=== PATIENT | male | born 1965 | race Caucasian/White ===

== ENCOUNTER 2024-09-06 15:59 | Emergency (ER) | payer BC, SELFPAY ==
[2024-09-06 16:13] VITALS: BP 189/106
--- NOTE | 2024-09-06 16:24 | ED.GENMED ---
ED Provider Triage
<Ami Preston PA-C - Last Filed: 09/06/24 16:27>
-
Patient seen by provider in Triage?: Seen in Triage
Attestation: A medical screening examination has been initiated by a qualified medical provider. Based on the assessment performed at this time, it has been determined that an emergent medical condition may exist and the patient has been informed
that further medical evaluation and possible additional diagnostic testing may be needed.
HPI: 58yoM here with mild chest discomfort, feels like a cramp. Seems to come on randomly. S/p CABG 4 years ago[address] with Dr[address] Montoya.
GENERAL: Alert , in no apparent distress
EYE: No visual abnormalities.
NECK: Trachea midline
ENT: No visible abnormalities.
LUNGS: No acute respiratory distress
NEUROLOGICAL: Alert and oriented
SKIN: Skin intact. No visible changes.
MUSCULOSKELETAL: Moving extremities normally
PSYCH: Normal and appropriate interaction.
This is a medical evaluation conducted in person to initiate diagnostic evaluation and provide initial therapeutics. Please see further documentation by the treating clinician.
Cardiac labs, EKG, and CXR ordered.
History of Present Illness
<Ami Preston PA-C - Last Filed: 09/06/24 16:27>
General
Chief Complaint: Cardiac Symptoms
Time Seen by Provider: 09/06/24 20:08
<ROSSY Cartwright - Last Filed: 09/06/24 22:23>
General
Source: patient
Exam Limitations: none
Nursing documentation reviewed up to this point in time: agreed with
History of Present Illness
History of Present Illness:
Patient is a 58-year-old male past medical history of cardiac bypass x3 ( 2019) diabetes presents to the ER for evaluation.
Patient reports intermittently for the past 10 days he has had intermittent neck discomfort and left lateral chest discomfort. He reports this is very brief and very sporadic and intermittent. He did however have neck discomfort when he previously
required bypass in 2020 but reports this is different.
He denies any shortness of breath.
He does take his medications including aspirin lisinopril atorvastatin metoprolol and diltiazem. In addition he is a diabetic and takes Lantus and NovoLog but has been not frequently checking his sugars.
Out of precaution patient presented to the ER.
Past History
<Ami Preston PA-C - Last Filed: 09/06/24 16:27>
Past History
ED Past Medical History: HTN and Other (Left inguinal hernia repair)
ED Past Surgical History: Other (Hernia repair as a child)
Social History
Tobacco: Non-smoker
Alcohol: None
Personal:
Living: with family
Employment: Employed
Family History
Family History: Other (He states his mother of anorexia)
Review of Systems
<ROSSY Cartwright - Last Filed: 09/06/24 22:23>
Review of Systems
Allergies reviewed?: Yes
All Other Systems: ROS reviewed and negative except as documented in HPI and ROS
Constitutional: Reports no symptoms; Denies fever, fatigue or chills
Respiratory: Denies trouble breathing
Cardiac: Reports chest pain; Denies diaphoresis, palpitations or syncope
ABD/GI: Reports no symptoms
: Reports no symptoms
Musculoskeletal: Reports no symptoms
Skin: Reports no symptoms
Neurological: Reports no symptoms
Hematologic/Lymphatic: Reports no symptoms
Psychiatric: Reports no symptoms
Phy Exam
<ROSSY Cartwright - Last Filed: 09/06/24 22:23>
General Physical Exam
General Presentation: no apparent distress
General age: appears stated age
General Skin: warm and dry
General Habitus: normal
General Mental: alert
General Hydration: appears well hydrated
Cardiovascular Exam
Cardiovascular Exam: regular rate/rhythm, no murmur and normal peripheral pulses
Pulmonary Exam
Pulmonary Exam: lungs clear and no respiratory distress
Neurological Exam
Neurological Exam: alert and oriented x3
Musculoskeletal Exam
Musculoskeletal Exam: full ROM
Skin Exam
Skin Exam: normal color and warm/dry
Psychiatric Exam
Psychiatric Exam: normal mood/affect
Course
<Ami Preston PA-C - Last Filed: 09/06/24 16:27>
Orders/Labs/Results
Orders:
Orders
09/06/24 16:01
ECG [Electrocardiogram (*1)] Urgent
Reason for Study: Chest Pain
EKG- Treatment ONCE
09/06/24 16:17
CR Chest - 2 Views Urgent
Comment:
Reason For Exam: chest pain
09/06/24 16:29
Complete Blood Count/With Diff Urgent
Comprehensive Metabolic Panel Urgent
Troponin I Urgent
09/06/24 20:10
EKG- Treatment ONCE
09/06/24 20:30
Electrocardiogram (*1) Urgent
Reason for Study: Other
Other Reason for Exam: repeat trop
09/06/24 20:41
Troponin I Urgent
09/06/24 20:42
0.9% Sodium Chloride 1000 ml [Nss] 1,000 ml IV BOLUS
Abnormal Lab Results
09/06/24 09/06/24
16:29 21:43
WBC 11.5 H 10^3/uL
(4.8-10.8)
MCH 32.9 H pg
(27.0-31.0)
MPV 12.0 H fL
(7.4-10.4)
Abs Immat Gran (auto) 0.1 H 10^3/uL
(0-0.05)
Absolute Neuts (auto) 8.5 H 10^3/uL
(1.4-6.5)
Absolute Monos (auto) 0.9 H 10^3/uL
(0.1-0.6)
Immature Gran % 0.7 H %
(0-0.5)
Lymphocytes % 15.5 L %
(20.5-51.1)
Carbon Dioxide 20 L mmol/L
(22-30)
BUN 25 H mg/dl
(9-20)
Glucose 434 H mg/dl
(70-99)
Total Bilirubin 2.6 H mg/dl
(0.2-1.3)
ALT 53 H U/L
(0-50)
POC Glucose 231 H mg/dl
(70-99)
09/06/24 16:29
09/06/24 16:29
Vital Signs
Initial and Last Documented VS:
Initial Vital Signs
Temp Pulse Resp BP Pulse Ox
98.5 F 84 18 189/106 96
09/06/24 16:13 09/06/24 16:13 09/06/24 16:13 09/06/24 16:13 09/06/24 16:13
Last Documented Vital Signs
Temp Pulse Resp BP Pulse Ox
98.5 F 72 16 186/91 98
09/06/24 16:13 09/06/24 21:45 09/06/24 21:45 09/06/24 21:40 09/06/24 21:45
<ROSSY Cartwright - Last Filed: 09/06/24 22:23>
Orders/Labs/Results
Orders:
Orders
09/06/24 16:01
ECG [Electrocardiogram (*1)] Urgent
Reason for Study: Chest Pain
EKG- Treatment ONCE
09/06/24 16:17
CR Chest - 2 Views Urgent
Comment:
Reason For Exam: chest pain
09/06/24 16:29
Complete Blood Count/With Diff Urgent
Comprehensive Metabolic Panel Urgent
Troponin I Urgent
09/06/24 20:10
EKG- Treatment ONCE
09/06/24 20:30
Electrocardiogram (*1) Urgent
Reason for Study: Other
Other Reason for Exam: repeat trop
09/06/24 20:41
Troponin I Urgent
09/06/24 20:42
0.9% Sodium Chloride 1000 ml [Nss] 1,000 ml IV BOLUS
Abnormal Lab Results
09/06/24 09/06/24
16:29 21:43
WBC 11.5 H 10^3/uL
(4.8-10.8)
MCH 32.9 H pg
(27.0-31.0)
MPV 12.0 H fL
(7.4-10.4)
Abs Immat Gran (auto) 0.1 H 10^3/uL
(0-0.05)
Absolute Neuts (auto) 8.5 H 10^3/uL
(1.4-6.5)
Absolute Monos (auto) 0.9 H 10^3/uL
(0.1-0.6)
Immature Gran % 0.7 H %
(0-0.5)
Lymphocytes % 15.5 L %
(20.5-51.1)
Carbon Dioxide 20 L mmol/L
(22-30)
BUN 25 H mg/dl
(9-20)
Glucose 434 H mg/dl
(70-99)
Total Bilirubin 2.6 H mg/dl
(0.2-1.3)
ALT 53 H U/L
(0-50)
POC Glucose 231 H mg/dl
(70-99)
09/06/24 16:29
09/06/24 16:29
Vital Signs
Initial and Last Documented VS:
Initial Vital Signs
Temp Pulse Resp BP Pulse Ox
98.5 F 84 18 189/106 96
09/06/24 16:13 09/06/24 16:13 09/06/24 16:13 09/06/24 16:13 09/06/24 16:13
Last Documented Vital Signs
Temp Pulse Resp BP Pulse Ox
98.5 F 72 16 186/91 98
09/06/24 16:13 09/06/24 21:45 09/06/24 21:45 09/06/24 21:40 09/06/24 21:45
Photolettering Machine Operator consulted with Physician
Photolettering Machine Operator consulted with physician?: Yes
Name of Physician Consulted: DR Cisneros
<ROSSY Cartwright - Last Filed: 09/06/24 22:23>
MDM/Problems Addressed
Differential Diagnosis Includes:
Not limited to ACS hyperglycemia musculoskeletal chest pain
MDM/Problems Addressed:
Patient is a 58-year-old male who presents to the ER for intermittent episodes of left-sided chest discomfort and neck discomfort for the past 10 days. He has has had prior bypass 4 years ago and does report however that although he had neck pain
at that time this is a different type of pain.
Pt presents to the ER asymptomatic initial troponin was 0.031 and 4-hour repeat troponin 0.033.
Pt is a diabetic and ill he states he takes his insulin as he does not check his sugar and has been noncompliant recently.
Pt with elevated bs was given nss and bs now 231 .
Patient has remained chest pain-free here in the ER. He does admit to not having seen his motor vehicle clerk, Dr. Montoya in a while.
Pain has been intermittent for the past 10 days and no change in cardiac troponin. Patient has been asymptomatic here in the ER
As discussed with ED physician will DC with chest pain
I did have long conversation with patient about closely following monitoring his blood sugar taking all his medicines as discussed and importance of follow-up with cardiology
Chronic conditions affecting care:
CABG
<ROSSY Cartwright - Last Filed: 09/06/24 22:23>
*Critical Care Note
Total Time (30-74mins, 75-104mins- exclusive of procedures): Not Applicable
ED Attending Note
<Ami Preston PA-C - Last Filed: 09/06/24 16:27>
-
Portions of this chart may have been created with voice recognition software.� Occasional wrong word or��sound alike� substitutions may have occurred due to the inherent limitations of voice recognition software.
Discharge Plan
Departure
Patient Disposition: Home (Routine Discharge)
Date of Disposition: 09/06/24
Time of Disposition: 22:13
Patient with high blood pressure during this ER visit?: Yes
Condition: Fair
Covid-19: Not Applicable
Discharge Problem:
Chest pain, Acute hyperglycemia
Instructions: Chest Pain (DC), Chest Pain CBC Follow Up, BLOOD PRESSURE
Prescriptions:
No Action
(DME) blood sugar diagnostic [Blood Glucose Test] 1 EACH strip
1 ea MC ACHS Qty: 200 0RF
Rx Instructions:
E11.65
OneTouch VERIO test strips
insulin aspart U-100 [Novolog FlexPen U-100 Insulin] 300 UNITS/3 ML insulin pen
4 units SC TID Qty: 5 0RF
Rx Instructions:
Take 10 min before breakfast, lunch, dinner
insulin glargine [Lantus Solostar U-100 Insulin] 300 UNITS/3 ML insulin pen
14 units SC HS Qty: 5 0RF
Rx Instructions:
E11.65
(DME) pen needle, diabetic 1 EACH needle
1 ea MC ACHS Qty: 200 0RF
Rx Instructions:
BD CLAUDIA pen needles
E11.65
(DME) lancets 1 EACH misc
1 ea MC ACHS Qty: 200 0RF
Rx Instructions:
DELICA lancets
E11.65
atorvastatin 80 MG tablet
80 mg PO QPM Qty: 30 2RF
acetaminophen 325 MG tablet
650 mg PO Q4HPRN PRN (Reason: mild pain,headache,temp >101F ) 0RF
amiodarone [Pacerone] 200 MG tablet
200 mg PO BID Qty: 56 0RF
Rx Instructions:
Take 200mg twice daily for 2 weeks, then decrease to 200mg once daily until seen by your motor vehicle clerk
metoprolol succinate 50 MG tablet extended release 24 hr
50 mg PO DAILY Qty: 30 2RF
aspirin 81 MG tablet,chewable
81 mg PO DAILY 0RF
diltiazem HCl 120 MG capsule,extended release 24hr
120 mg PO DAILY Qty: 30 2RF
furosemide [Lasix] 40 MG tablet
40 mg PO DAILY Qty: 5 0RF
potassium chloride [Klor-Con M20] 20 MEQ tablet,ER particles/crystals
20 meq PO DAILY Qty: 5 0RF
oxycodone 5 MG tablet
5 mg PO Q6HPRN PRN (Reason: pain) Qty: 26 0RF
Referrals:
Jai Montoya MD [Active] -
Activity Restrictions/Additional Instructions:
As discussed you were placed on the chest pain hotline which means you should receive a phone call from the cardiology office in the next day or 2 however if you do not please call the office to schedule an appointment soon as possible. Also please
closely monitor your blood sugar as your blood sugar was high today here in the ER take your insulin as previously recommended. Return however to the ER if any worsening of symptoms including chest pain shortness of breath or any further concerns.
Interventions
Interventions:
*Risk Screen - Suicide Last Done: 09/06/24 16:13
*General Assessment Last Done: 09/06/24 16:13
*Neglect/Abuse Screening Last Done: 09/06/24 16:13
*ED COVID-19 Vaccine History Last Done: 09/06/24 16:13
ED- Pulmonary Assessment Last Done: 09/06/24 21:28
ED- Cardiac Assessment Last Done: 09/06/24 21:28
Discharge Date and Time
Print Language: GUATEMALAN
[2024-09-06 16:52] LABS: ALT (SGPT) 53 U/L (0-50); AST (SGOT) 39 U/L (17-59); Albumin 4.6 g/dl (3.5-5.0); Alkaline Phosphatase 116 U/L (38-126); Blood Urea Nitrogen 25 mg/dl (9-20); Calcium 9.5 mg/dl (8.4-10.2); Carbon Dioxide 20 mmol/L (22-30); Chloride 103 mmol/L (98-107); Glucose 434 mg/dl (70-99); Potassium 4.5 mmol/L (3.5-5.1); Sodium 138 mmol/L (135-145); Total Bilirubin 2.6 mg/dl (0.2-1.3); Total Protein 7.4 g/dl (6.3-8.2); eGFR > 60.00
[2024-09-06 17:03] LABS: Troponin I 0.031 ng/ml
[2024-09-06 17:58] LABS: % Basophils 0.5 % (0-2); % Eosinophils 2.1 % (0-6); % Immature Granulocytes 0.7 % (0-0.5); % Lymphocytes 15.5 % (20.5-51.1); % Monocytes 7.6 % (1.7-9.3); % Neutrophils 73.6 % (42.2-75.2); Absolute Basophils 0.1 10^3/uL (0-0.2); Absolute Eosinophils 0.2 10^3/uL (0-0.7); Absolute Immature Granulocytes 0.1 10^3/uL (0-0.05); Absolute Lymphocytes 1.8 10^3/uL (1.2-3.4); Absolute Monocytes 0.9 10^3/uL (0.1-0.6); Absolute Neutrophils 8.5 10^3/uL (1.4-6.5); Hematocrit 48.7 % (39.0-52.0); Mean Corpuscular Hgb 32.9 pg (27.0-31.0); Nucleated Red Blood Cells % 0 % (-); Platelet Count 203 10^3/uL (130-400); Red Blood Cell Count 5.47 10^6/uL (4.70-6.10); Red Cell Dist. Width 12.3 % (11.5-14.5); White Blood Cell Count 11.5 10^3/uL (4.8-10.8)
[2024-09-06 18:30] VITALS: BP 134/99
[2024-09-06 20:41] VITALS: BP 185/112
[2024-09-06] MEDS: NSS 1000 IV (20:43)
[2024-09-06 21:29] LABS: Troponin I 0.033 ng/ml
[2024-09-06 21:40] VITALS: BP 186/91
[2024-09-06 21:44] LABS: Glucose - Point of Care 231 mg/dl (70-99)
[2024-09-06 22:00] VITALS: BP 163/96
== END 2024-09-06 23:03 | disposition home or self-care (01) ==
LOC: EMR 15:59
PROVIDERS: Emergency Medicine; EMERGENCY PHYSICIAN Emergency Medicine; FAMILY PHYSICIAN Family Medicine
DX: R07.89 Other chest pain (principal); M54.2 Cervicalgia; E11.65 Type 2 diabetes mellitus with hyperglycemia; Z95.1 Presence of aortocoronary bypass graft; Z91.148 Patient's other noncompliance with medication regimen for other reason; Z79.82 Long term (current) use of aspirin; Z79.899 Other long term (current) drug therapy
CPT/HCPCS: 99284; 96360; 71046; 80053; 82962; 84484; 85025; 93005

== ENCOUNTER → 2024-09-14 06:35 | Outpatient (REF) | payer BC, SELFPAY ==
[2024-09-14 08:19] LABS: % Basophils 0.7 % (0-2); % Eosinophils 3.7 % (0-6); % Immature Granulocytes 0.6 % (0-0.5); % Lymphocytes 20.7 % (20.5-51.1); % Monocytes 9.1 % (1.7-9.3); % Neutrophils 65.2 % (42.2-75.2); Absolute Basophils 0.1 10^3/uL (0-0.2); Absolute Eosinophils 0.3 10^3/uL (0-0.7); Absolute Immature Granulocytes 0.1 10^3/uL (0-0.05); Absolute Lymphocytes 1.9 10^3/uL (1.2-3.4); Absolute Monocytes 0.8 10^3/uL (0.1-0.6); Absolute Neutrophils 5.9 10^3/uL (1.4-6.5); Hematocrit 46.9 % (39.0-52.0); Hemoglobin 17.6 g/dL (13.0-18.0); Mean Corp Hgb Conc. 37.5 g/dL (33.0-37.0); Mean Corpuscular Hgb 32.7 pg (27.0-31.0); Nucleated Red Blood Cells % 0 % (-); Platelet Count 222 10^3/uL (130-400); Red Blood Cell Count 5.39 10^6/uL (4.70-6.10); Red Cell Dist. Width 12.3 % (11.5-14.5)
[2024-09-14 08:54] LABS: ALT (SGPT) 64 U/L (0-50); AST (SGOT) 40 U/L (17-59); Albumin 4.7 g/dl (3.5-5.0); Alkaline Phosphatase 65 U/L (38-126); Blood Urea Nitrogen 28 mg/dl (9-20); Carbon Dioxide 22 mmol/L (22-30); Chloride 104 mmol/L (98-107); Glucose 183 mg/dl (70-99); HDL Cholesterol 31 mg/dl; LDL Cholesterol, Calculated 49 mg/dl; Potassium 4.2 mmol/L (3.5-5.1); Sodium 142 mmol/L (135-145); Total Bilirubin 2.5 mg/dl (0.2-1.3); Total Cholesterol 123 mg/dl (50-199); Total Protein 7.1 g/dl (6.3-8.2); Triglyceride 218 mg/dl (10-149); Very Low Density Lipoprotein 43 mg/dl (0-30); eGFR > 60.00
[2024-09-14 09:16] LABS: TSH 4.44 uIU/ml (0.47-4.68)
[2024-09-14 10:06] LABS: Glycohemoglobin (HgbA1c) 10.1 % (4.0-5.6)
== END ==
LOC: RCS 06:35
PROVIDERS: ATTENDING PHYSICIAN Internal Medicine
DX: I25.700 Atherosclerosis of coronary artery bypass graft(s), unspecified, with unstable angina pectoris (principal); I10 Essential (primary) hypertension; I25.810 Atherosclerosis of coronary artery bypass graft(s) without angina pectoris
CPT/HCPCS: 36415; 80053; 80061; 83036; 84443; 85025; 93306; Q9950

== ENCOUNTER 2024-09-17 06:44 | Day surgery (SDC) | payer BC, SELFPAY ==
[2024-09-17] VITALS (10 sets, daily range): BP systolic 116–175; BP diastolic 79–97; BMI 34.0
[2024-09-17 07:54] LABS: Glucose - Point of Care 196 mg/dl (70-99)
[2024-09-17 11:30] LABS: Glucose - Point of Care 178 mg/dl (70-99)
--- NOTE | 2024-09-19 11:07 | ITS.CL.CATH ---
Shoe Clerk - Catheterization
Cardiac Catheterization
Procedure Report:
CARDIAC CATHETERIZATION REPORT
Date of Procedure: 09/17/2024
Referring: Dr. Luidn Rodas MD
Indication: typical anginal chest pain
PROCEDURES:
1. Coronary angiography
2. Bypass graft angiography
3. Left heart catheterization
ACCESS:
6 Cypriot right femoral artery (closed with manual hemostasis)
CATHETERS:
1. 6 Cypriot JL4
2. 6 Cypriot JR4
3. 6 Cypriot EMIR
HEMODYNAMIC DATA:
LV 153/10 (EDP 22) mmHg
AO 157/85 (mean 110) mmHg
CORONARY ANGIOGRAPHY
Dominance: right
LM: totally occluded proximally
RCA: very large vessel giving rise to a medium-caliber RPDA and large RPL branch which has evidence of competitive flow. There is a 40% stenosis in the proximal RCA (at the Church's crook) and otherwise mild diffuse disease.
BYPASS GRAFT ANGIOGRAPHY
LAUREANO-LAD: taken as a pedicle and forms a patent anastomosis with the mid-LAD. Briskly fills the mid-distal LAD to the apex. There is mild disease in the mid-distal LAD.
SVG-OM1: forms a patent aorto-ostial anastomosis and patent anastomosis with the OM1. Briskly fills the OM1 and retrogradely fills the remainder of the LCx system as well as the large first diagonal. There is mild disease in the LCx and diagonal
branches.
SVG-RPL: forms a patent aorto-ostial anastomosis and patent anastomosis with the RPL. Briskly fills the RPL branch.
Radiation dose (mGy): 946
DAP (cm2.Gy): 59.82
Fluoroscopy time (minutes): 13.9
CONCLUSIONS:
1. Coronary artery disease status post-CABG with patent grafts and no unrevascularized obstructive disease.
2. Elevated LV filling pressure and no aortic stenosis.
RECOMMENDATIONS:
1. Aggressive secondary prevention of coronary artery disease.
2. Workup and treatment for etiologies of chest pain not related to epicardial coronary artery disease.
Copy to: Dr. Ludin Rodas MD
Signed: Dax Vail MD, PhD
== END 2024-09-17 15:00 | disposition home or self-care (01) ==
LOC: CATH 06:44
PROVIDERS: ATTENDING PHYSICIAN Student in an Organized Health Care Education/Training Program; OTHER PHYSICIAN Internal Medicine
DX: I25.118 Atherosclerotic heart disease of native coronary artery with other forms of angina pectoris (principal); Z95.1 Presence of aortocoronary bypass graft; I10 Essential (primary) hypertension; E78.5 Hyperlipidemia, unspecified; E11.9 Type 2 diabetes mellitus without complications; Z79.4 Long term (current) use of insulin; Z79.82 Long term (current) use of aspirin
CPT/HCPCS: 82962; 93459; C1894; Q9967

== ENCOUNTER 2024-12-27 08:47 | Emergency (ER) | payer BC, SELFPAY ==
[2024-12-27 09:07] VITALS: BP 164/98
--- NOTE | 2024-12-27 16:06 | ED.GENMED ---
History of Present Illness
General
Chief Complaint: Prescription Refill
Source: patient
Time Seen by Provider: 12/27/24 09:22
History of Present Illness
History of Present Illness:
59-year-old male presents to the emergency room because he is running out of insulin and does not have a family doctor. Pt has no other complaints.
Past History
Past History
ED Past Medical History: HTN and Other (Left inguinal hernia repair)
ED Past Surgical History: Other (Hernia repair as a child)
Social History
Tobacco: Non-smoker
Alcohol: None
Personal:
Living: with family
Employment: Employed
Family History
Family History: Other (He states his mother of anorexia)
Phy Exam
Physical Exam
Physical Exam:
General: Awake, Alert, Oriented X3. No acute distress.
Vitals: unremarkable
Head: Atraumatic
Eyes: Pupils equal, EOMI
Throat: Airway intact, no exudates
Lungs: Clear and equal b/l
Heart: Regular rate, no murmurs
Abd: Soft, Nontender, No pulsatile mass
Neuro: Nonfocal
Skin: Warm, dry, no rash
Extremities: pulses equal b/l, no edema
Course
Vital Signs
Initial and Last Documented VS:
Initial Vital Signs
Temp Pulse Resp BP Pulse Ox
98 F 75 16 164/98 97
12/27/24 09:07 12/27/24 09:07 12/27/24 09:07 12/27/24 09:07 12/27/24 09:07
Last Documented Vital Signs
Temp Pulse Resp BP Pulse Ox
98 F 75 16 164/98 97
12/27/24 09:07 12/27/24 09:07 12/27/24 09:07 12/27/24 09:07 12/27/24 09:07
MDM/Problems Addressed
MDM/Problems Addressed:
Medication refill. Patient given prescriptions for both his long and short acting insulin. I communicated with the residency clinic. They will contact the patient to schedule a new patient appointment.
*Critical Care Note
Total Time (30-74mins, 75-104mins- exclusive of procedures): Not Applicable
ED Attending Note
-
Portions of this chart may have been created with voice recognition software.� Occasional wrong word or��sound alike� substitutions may have occurred due to the inherent limitations of voice recognition software.
Discharge Plan
Departure
Patient Disposition: Home (Routine Discharge)
Date of Disposition: 12/27/24
Time of Disposition: 09:55
Patient with high blood pressure during this ER visit?: Yes
Discharge Problem:
Diabetes mellitus
Instructions: Diabetes and diet, BLOOD PRESSURE
Prescriptions:
New
insulin glargine [Lantus Solostar U-100 Insulin] 100 unit/mL (3 mL) insulin pen
14 unit SC QHS Qty: 15 0RF
insulin aspart U-100 [Novolog FlexPen U-100 Insulin] 100 unit/mL (3 mL) insulin pen
4 unit SC TID Qty: 15 0RF
No Action
(DME) blood sugar diagnostic [Blood Glucose Test] 1 EACH strip
1 ea MC ACHS Qty: 200 0RF
Rx Instructions:
E11.65
OneTouch VERIO test strips
insulin aspart U-100 [Novolog FlexPen U-100 Insulin] 300 UNITS/3 ML insulin pen
4 units SC TID Qty: 5 0RF
Rx Instructions:
Take 10 min before breakfast, lunch, dinner
insulin glargine [Lantus Solostar U-100 Insulin] 300 UNITS/3 ML insulin pen
14 units SC HS Qty: 5 0RF
Rx Instructions:
E11.65
(DME) pen needle, diabetic 1 EACH needle
1 ea MC ACHS Qty: 200 0RF
Rx Instructions:
BD CLAUDIA pen needles
E11.65
(DME) lancets 1 EACH misc
1 ea MC ACHS Qty: 200 0RF
Rx Instructions:
DELICA lancets
E11.65
atorvastatin 80 MG tablet
80 mg PO QPM Qty: 30 2RF
acetaminophen 325 MG tablet
650 mg PO Q4HPRN PRN (Reason: mild pain,headache,temp >101F ) 0RF
aspirin 81 MG tablet,chewable
81 mg PO DAILY 0RF
diltiazem HCl 120 MG capsule,extended release 24hr
120 mg PO DAILY Qty: 30 2RF
lisinopril 20 mg Tablet
20 mg PO DAILY
metoprolol succinate 50 MG tablet extended release 24 hr
50 mg PO QPM
Referrals:
[facility] [Outside]
Interventions
Interventions:
*Risk Screen - Suicide Last Done: 12/27/24 09:09
*Neglect/Abuse Screening Last Done: 12/27/24 09:09
*Nursing Disposition Last Done: 12/27/24 10:03
Discharge Date and Time
Discharge Date/Time: 12/27/24 10:04
Print Language: LAO
== END 2024-12-27 10:04 | disposition home or self-care (01) ==
LOC: EMR 08:47
PROVIDERS: EMERGENCY PHYSICIAN Emergency Medicine
DX: E11.9 Type 2 diabetes mellitus without complications (principal); I10 Essential (primary) hypertension; Z76.0 Encounter for issue of repeat prescription; Z79.4 Long term (current) use of insulin
CPT/HCPCS: 99281

== ENCOUNTER 2025-11-17 12:09 | Emergency (ER) | payer BC, SELFPAY ==
[2025-11-17 12:25] VITALS: BP 175/92
--- NOTE | 2025-11-17 14:57 | ED.GENMED ---
History of Present Illness
General
Chief Complaint: Nose Bleed
Source: patient
Exam Limitations: none
Time Seen by Provider: 11/17/25 14:31
Nursing documentation reviewed up to this point in time: agreed with
History of Present Illness
History of Present Illness:
59-year-old male with past medical history of CAD, cardiac bypass hypertension presents to the ER for evaluation. Patient had 3 nosebleeds over the past 1-1/2 weeks. His last nosebleed was this morning at 1 AM it lasted for a full hour. He
reports itchiness but lasted for 4 hours. Patient had surgery at [facility] in [facility] for infection in his face/neck and was intubated. He is unsure if this is from recent intubation. He currently is asymptomatic.
He is on aspirin only no other blood thinners. Denies any trauma or headaches. Pt denies any lightheadedness/weakness/dizziness.
Regarding his surgery he has no symptoms and denies any swelling fever chills. He is a very poor historian and is present specific on the site of the infection.
Past History
Past History
ED Past Medical History: HTN and Other (Left inguinal hernia repair)
ED Past Surgical History: Other (Hernia repair as a child)
Social History
Tobacco: Non-smoker
Alcohol: None
Personal:
Living: with family
Employment: Employed
Family History
Family History: Other (He states his mother of anorexia)
Phy Exam
General Physical Exam
General Presentation: no apparent distress
General age: appears stated age
General Skin: warm and dry
General Habitus: normal
General Mental: alert
General Hydration: appears well hydrated
ENT Exam
ENT Exam: EOMI and other (Bilateral nares are clear)
Neurological Exam
Neurological Exam: alert and oriented x3
Musculoskeletal Exam
Musculoskeletal Exam: full ROM
Skin Exam
Skin Exam: normal color and warm/dry
Psychiatric Exam
Psychiatric Exam: normal mood/affect
Course
Orders/Labs/Results
Orders:
Orders
11/17/25 15:24
Complete Blood Count/With Diff Urgent
Comprehensive Metabolic Panel Urgent
Abnormal Lab Results
11/17/25
15:24
WBC 10.9 H 10^3/uL
(4.8-10.8)
MCH 31.3 H pg
(27.0-31.0)
Abs Immat Gran (auto) 0.1 H 10^3/uL
(0-0.05)
Absolute Neuts (auto) 7.7 H 10^3/uL
(1.4-6.5)
Absolute Monos (auto) 0.9 H 10^3/uL
(0.1-0.6)
Lymphocytes % 16.9 L %
(20.5-51.1)
BUN 32 H mg/dl
(9-20)
Glucose 224 H mg/dl
(70-99)
Total Bilirubin 1.6 H mg/dl
(0.2-1.3)
11/17/25 15:24
11/17/25 15:24
Vital Signs
Initial and Last Documented VS:
Initial Vital Signs
Temp Pulse Resp BP Pulse Ox
98.8 F 90 18 175/92 98
11/17/25 12:25 11/17/25 12:11/17/25 12:11/17/25 12:25 11/17/25 12:25
Last Documented Vital Signs
Temp Pulse Resp BP Pulse Ox
98.8 F 90 18 175/92 98
11/17/25 12:25 11/17/25 12:25 11/17/25 12:11/17/25 12:11/17/25 14:58
MDM/Problems Addressed
Differential Diagnosis Includes:
Nosebleeds
MDM/Problems Addressed:
As documented patient is a 59-year-old male who presented with several nosebleeds in the past 1 to 1-1/2 weeks. He reports each lasted for about an hour. He recently had some type of surgery he believes in his face/ neck related to infection but
is unclear clear exactly what surgery he did have.
He has no bleeding here and his nares bilaterally are clear. Because of several nosebleeds and length of nosebleeds hemoglobin was checked and normal. His BUN is always minimally elevated this is not new. Sugar is elevated he is a diabetic and
is aware that his sugars have been poorly controlled discussed close monitoring. Blood pressure is already does have hypertension and is on medicine for this no headache blurry vision.
Stable for discharge home.
Will refer to ENT if Needed
Chronic conditions affecting care:
CABG on ASA
*Pulse Oximetry
SaO2: 98
Oxygen Mode of Delivery: Room air
Patient hypoxic: no
*Critical Care Note
Total Time (30-74mins, 75-104mins- exclusive of procedures): Not Applicable
ED Attending Note
-
Portions of this chart may have been created with voice recognition software.� Occasional wrong word or��sound alike� substitutions may have occurred due to the inherent limitations of voice recognition software.
Discharge Plan
Departure
Patient Disposition: Home (Routine Discharge)
Date of Disposition: 11/17/25
Time of Disposition: 16:38
Patient with high blood pressure during this ER visit?: Yes
Condition: Fair
Covid-19: Not Applicable
Discharge Problem:
Epistaxis
Instructions: Nosebleeds (DC), BLOOD PRESSURE
Prescriptions:
No Action
(DME) blood sugar diagnostic [Blood Glucose Test] 1 EACH strip
1 ea MC ACHS Qty: 200 0RF
Rx Instructions:
E11.65
OneTouch VERIO test strips
insulin aspart U-100 [Novolog FlexPen U-100 Insulin] 300 UNITS/3 ML insulin pen
4 units SC TID Qty: 5 0RF
Rx Instructions:
Take 10 min before breakfast, lunch, dinner
insulin glargine [Lantus Solostar U-100 Insulin] 300 UNITS/3 ML insulin pen
14 units SC HS Qty: 5 0RF
Rx Instructions:
E11.65
(DME) pen needle, diabetic 1 EACH needle
1 ea MC ACHS Qty: 200 0RF
Rx Instructions:
BD CLAUDIA pen needles
E11.65
(DME) lancets 1 EACH misc
1 ea MC ACHS Qty: 200 0RF
Rx Instructions:
DELICA lancets
E11.65
atorvastatin 80 MG tablet
80 mg PO QPM Qty: 30 2RF
acetaminophen 325 MG tablet
650 mg PO Q4HPRN PRN (Reason: mild pain,headache,temp >101F ) 0RF
aspirin 81 MG tablet,chewable
81 mg PO DAILY 0RF
diltiazem HCl 120 MG capsule,extended release 24hr
120 mg PO DAILY Qty: 30 2RF
lisinopril 20 mg Tablet
20 mg PO DAILY
metoprolol succinate 50 MG tablet extended release 24 hr
50 mg PO QPM
insulin glargine [Lantus Solostar U-100 Insulin] 100 unit/mL (3 mL) insulin pen
14 unit SC QHS Qty: 15 0RF
insulin aspart U-100 [Novolog FlexPen U-100 Insulin] 100 unit/mL (3 mL) insulin pen
4 unit SC TID Qty: 15 0RF
Referrals:
Parker Esquivel MD [Active, Otology]
Rosy Mac PA-C [Family Provider, Family Practice]
Activity Restrictions/Additional Instructions:
Follow-up with ENT as needed for further evaluation of nosebleeds. Your labs show an elevated BUN however this is unchanged. Please increase fluid intake. Your hemoglobin is stable. Return if any worsening of symptoms.
Interventions
Interventions:
*General Assessment Last Done: 11/17/25 12:28
*Neglect/Abuse Screening Last Done: 11/17/25 12:28
*ED COVID-19 Vaccine History Last Done: 11/17/25 12:28
*ED Influenza Vaccine History Last Done: 11/17/25 12:28
*Risk Screen - Suicide (C-SSRS) Last Done: 11/17/25 12:28
*Nursing Disposition Last Done: 11/17/25 16:43
ED-EENT Assessment Last Done: 11/17/25 16:42
Discharge Date and Time
Print Language: SLOVENIAN
[2025-11-17 15:35] LABS: Hematocrit 43.8 % (39.0-52.0); Hemoglobin 15.6 g/dL (13.0-18.0); Mean Corp Hgb Conc. 35.6 g/dL (33.0-37.0); Mean Corpuscular Volume 87.8 fL (80.0-94.0); Nucleated Red Blood Cells % 0 % (-); Platelet Count 249 10^3/uL (130-400); Red Cell Dist. Width 13.6 % (11.5-14.5)
[2025-11-17 15:57] LABS: ALT (SGPT) 45 U/L (0-50); AST (SGOT) 25 U/L (17-59); Albumin 4.8 g/dl (3.5-5.0); Alkaline Phosphatase 84 U/L (38-126); Blood Urea Nitrogen 32 mg/dl (9-20); Calcium 10.0 mg/dl (8.4-10.2); Carbon Dioxide 23 mmol/L (22-30); Chloride 106 mmol/L (98-107); Glucose 224 mg/dl (70-99); Potassium 4.3 mmol/L (3.5-5.1); Sodium 139 mmol/L (135-145); Total Protein 7.9 g/dl (6.3-8.2); eGFR > 60.00
== END 2025-11-17 16:43 | disposition home or self-care (01) ==
LOC: EMR 12:09
PROVIDERS: Nurse Practitioner; EMERGENCY PHYSICIAN Emergency Medicine; FAMILY PHYSICIAN Physician Assistant Medical
DX: R04.0 Epistaxis (principal); I10 Essential (primary) hypertension; E11.65 Type 2 diabetes mellitus with hyperglycemia; Z95.1 Presence of aortocoronary bypass graft; Z79.82 Long term (current) use of aspirin
CPT/HCPCS: 99283; 80053; 85025